=== PATIENT | female | born 1985 | race Caucasian/White ===

== ENCOUNTER 2025-03-04 12:44 | Emergency (ER) | payer BC ==
[2025-03-04 13:29] LABS: BASOPHILS ABSOLUTE AUTO 0.03 K/uL (0.00-0.20); BASOPHILS PERCENT AUTO 0.2 % (0.0-1.0); EOSINOPHILS ABSOLUTE AUTO 0.03 K/uL (0.00-0.45); EOSINOPHILS PERCENT AUTO 0.2 % (0.0-6.0); HEMATOCRIT 42.6 % (37.0-47.0); HEMOGLOBIN 14.6 g/dL (12.0-16.0); IMMATURE GRAN ABSOLUTE AUTO 0.04 K/uL (0.00-0.05); IMMATURE GRAN PERCENT AUTO 0.2 % (0.0-0.4); LYMPHOCYTES ABSOLUTE AUTO 1.82 K/uL (1.00-4.80); LYMPHOCYTES PERCENT AUTO 11.3 % (24.0-44.0); MEAN CORPUSCULAR HEMOGLOBIN 29.6 pg (28.0-32.0); MEAN CORPUSCULAR HGB CONC 34.3 g/dL (32.0-36.0); MEAN CORPUSCULAR VOLUME 86.4 fL (83.0-99.0); MEAN PLATELET VOLUME 9.5 fL (9.4-12.3); MONOCYTES ABSOLUTE AUTO 0.76 K/uL (0.00-0.80); MONOCYTES PERCENT AUTO 4.7 % (0.0-8.0); NEUTROPHILS ABSOLUTE AUTO 13.45 K/uL (1.80-7.70); NEUTROPHILS PERCENT AUTO 83.4 % (41.0-71.0); PLATELET COUNT,PLT 301 K/uL (150-400); RED BLOOD CELL COUNT 4.93 M/uL (4.10-5.30); WHITE BLOOD CELL COUNT,WBC 16.13 K/uL (3.9-11.3)
[2025-03-04] MEDS ORDERED: Naloxone 0.4 MG/ML SDV IVPUSH PRN ×2 (13:38→15:53)
[2025-03-04] MEDS: Morphine 4 MG/ML Syringe IVPUSH ONE ×2 (13:55→16:14)
[2025-03-04] MEDS: Ondansetron 4 MG/2 ML SDV IVPUSH ONE (13:55)
[2025-03-04 14:07] LABS: A/G RATIO 1.2 (0.9-1.6); ALBUMIN 4.5 g/dL (3.4-5.0); CALCIUM 9.5 mg/dL (8.5-10.1); CARBON DIOXIDE,CO2 28.3 mmol/L (21.0-32.0); CREATININE 0.8 mg/dL (0.6-1.0); EST CRCL DRUG DOSING (CG) 69.16 mL/min; POTASSIUM,K 2.9 mmol/L (3.5-5.1); PROTEIN TOTAL,TP 8.1 g/dL (6.4-8.2)
[2025-03-04] MEDS: Iopamidol 755 MG/ML 500 ML Multipack Bottle IVPUSH STA (15:00)
[2025-03-04 16:47] LABS: BILIRUBIN,URINE NEGATIVE (NEGATIVE); COLOR,URINE YELLOW; GLUCOSE,URINE NEGATIVE (NEGATIVE); KETONES,URINE 40 mg/dL (NEGATIVE); LEUKOCYTE ESTERASE,URINE NEGATIVE (NEGATIVE); NITRITE,URINE NEGATIVE (NEGATIVE); OCCULT BLOOD,URINE TRACE-INTACT (NEGATIVE); PH,URINE 6.5 (5.0-8.0); PROTEIN,URINE NEGATIVE (NEGATIVE)
[2025-03-04 16:48] LABS: APPEARANCE,URINE CLEAR
[2025-03-04 16:55] LABS: BACTERIA,URINE FEW (NEGATIVE); MUCUS,URINE LIGHT (NONE-MOD); SQUAMOUS EPITHELIAL CELLS,UR FEW; WBC,URINE 0-2 (0-5/HPF)
== END 2025-03-04 17:35 | disposition home or self-care (01) ==
LOC: MW.ED 12:44
DX: R10.2 Pelvic and perineal pain (principal); E87.6 Hypokalemia; Z90.710 Acquired absence of both cervix and uterus
CPT/HCPCS: 36415; 74177; 80053; 81001; 83735; 85025; 96374; 96375; 96376; 99284; J2270; J2405; Q9967; 99283

== ENCOUNTER 2025-04-28 13:11 | Inpatient (IN) | payer BC ==
[2025-04-28 14:28] LABS: APPEARANCE,URINE CLOUDY; GLUCOSE,URINE NEGATIVE (NEGATIVE); OCCULT BLOOD,URINE MODERATE (NEGATIVE)
[2025-04-28 14:40] LABS: EPITHELIAL CELLS,URINE FEW (NONE-FEW)
[2025-04-28] MEDS: Ketorolac 30 MG/ML SDV IVPUSH ONE (14:57)
[2025-04-28] MEDS: Ondansetron 4 MG/2 ML SDV IVPUSH ONE (14:57)
[2025-04-28] MEDS: cefTRIAXone 1 GM in Water For Injection, Sterile 10 ML IVPUSH ONE (15:27)
[2025-04-28 15:50] LABS: A/G RATIO 0.8 (0.9-1.6); ALANINE AMINOTRANSFERASE,ALT 62.0 IU/L (14-63); ASPARTATE AMNIOTRANSFERASE,AST 36.0 IU/L (15-37); BILIRUBIN TOTAL 0.6 mg/dL (0.2-1.0); BLOOD UREA NITROGEN,BUN 6.0 mg/dL (7.0-18.0); CARBON DIOXIDE,CO2 22.6 mmol/L (21.0-32.0); CHLORIDE,CL 98.0 mmol/L (98-107); CREATININE 0.8 mg/dL (0.6-1.0); EST CRCL DRUG DOSING (CG) 68.49 mL/min; GLUCOSE RANDOM 94.0 mg/dL (74-106); POTASSIUM,K 3.5 mmol/L (3.5-5.1); PROTEIN TOTAL,TP 9.1 g/dL (6.4-8.2); SODIUM,NA 134.0 mmol/L (136-145)
[2025-04-28 15:52] LABS: ESTIMATED GFR 97.0 mL/min (>60)
[2025-04-28 16:06] LABS: BASOPHILS ABSOLUTE AUTO 0.04 K/uL (0.00-0.20); BASOPHILS PERCENT AUTO 0.3 % (0.0-1.0); EOSINOPHILS ABSOLUTE AUTO 0.04 K/uL (0.00-0.45); EOSINOPHILS PERCENT AUTO 0.3 % (0.0-6.0); IMMATURE GRAN ABSOLUTE AUTO 0.04 K/uL (0.00-0.05); IMMATURE GRAN PERCENT AUTO 0.3 % (0.0-0.4); LYMPHOCYTES ABSOLUTE AUTO 1.58 K/uL (1.00-4.80); LYMPHOCYTES PERCENT AUTO 12.4 % (24.0-44.0); MEAN PLATELET VOLUME 10.7 fL (9.4-12.3); MONOCYTES ABSOLUTE AUTO 1.21 K/uL (0.00-0.80); MONOCYTES PERCENT AUTO 9.5 % (0.0-8.0); NEUTROPHILS ABSOLUTE AUTO 9.86 K/uL (1.80-7.70); NEUTROPHILS PERCENT AUTO 77.2 % (41.0-71.0); NRBC ABSOLUTE 0.00 K/uL (0.00-0.02); NRBC PERCENT 0.0 /100WBC (0.0-0.2); PLATELET COUNT,PLT 235 K/uL (150-400); RED BLOOD CELL COUNT 5.08 M/uL (4.10-5.30); WHITE BLOOD CELL COUNT,WBC 12.77 K/uL (3.9-11.3)
[2025-04-28 16:30] LABS: LACTIC ACID 0.9 mmol/L (0.4-2.0)
[2025-04-28] MEDS ORDERED: Ondansetron 4 MG Tab.DIS PO PRN (17:12)
[2025-04-28] MEDS ORDERED: Naloxone 0.4 MG/ML SDV IVPUSH PRN (17:12)
[2025-04-28] MEDS ORDERED: Sodium Chloride 0.9% 2.5 ML Syringe FLUSH PRN (17:12)
[2025-04-28] MEDS ORDERED: Sodium Chloride 0.9% 10 ML Syringe FLUSH PRN (17:12)
[2025-04-28] MEDS: Ondansetron 4 MG/2 ML SDV IVPUSH PRN (21:19)
[2025-04-29] MEDS: Ketorolac 30 MG/ML SDV IM PRN (01:05)
[2025-04-29 05:26] LABS: BASOPHILS ABSOLUTE AUTO 0.02 K/uL (0.00-0.20); BASOPHILS PERCENT AUTO 0.2 % (0.0-1.0); EOSINOPHILS ABSOLUTE AUTO 0.11 K/uL (0.00-0.45); EOSINOPHILS PERCENT AUTO 1.0 % (0.0-6.0); IMMATURE GRAN ABSOLUTE AUTO 0.03 K/uL (0.00-0.05); IMMATURE GRAN PERCENT AUTO 0.3 % (0.0-0.4); LYMPHOCYTES ABSOLUTE AUTO 1.85 K/uL (1.00-4.80); LYMPHOCYTES PERCENT AUTO 17.3 % (24.0-44.0); MEAN PLATELET VOLUME 9.1 fL (9.4-12.3); MONOCYTES ABSOLUTE AUTO 1.19 K/uL (0.00-0.80); MONOCYTES PERCENT AUTO 11.1 % (0.0-8.0); NEUTROPHILS ABSOLUTE AUTO 7.52 K/uL (1.80-7.70); NEUTROPHILS PERCENT AUTO 70.1 % (41.0-71.0); NRBC ABSOLUTE 0.00 K/uL (0.00-0.02); NRBC PERCENT 0.0 /100WBC (0.0-0.2); PLATELET COUNT,PLT 252 K/uL (150-400); RED BLOOD CELL COUNT 4.05 M/uL (4.10-5.30); WHITE BLOOD CELL COUNT,WBC 10.72 K/uL (3.9-11.3)
[2025-04-29 05:54] LABS: A/G RATIO 0.8 (0.9-1.6); ALANINE AMINOTRANSFERASE,ALT 47.0 IU/L (14-63); ASPARTATE AMNIOTRANSFERASE,AST 27.0 IU/L (15-37); BILIRUBIN TOTAL 0.4 mg/dL (0.2-1.0); BLOOD UREA NITROGEN,BUN 4.0 mg/dL (7.0-18.0); CARBON DIOXIDE,CO2 24.4 mmol/L (21.0-32.0); CHLORIDE,CL 101.0 mmol/L (98-107); CREATININE 0.6 mg/dL (0.6-1.0); EST CRCL DRUG DOSING (CG) 91.32 mL/min; GLUCOSE RANDOM 88.0 mg/dL (74-106); POTASSIUM,K 3.2 mmol/L (3.5-5.1); PROTEIN TOTAL,TP 6.9 g/dL (6.4-8.2); SODIUM,NA 137.0 mmol/L (136-145)
[2025-04-29 06:03] LABS: ESTIMATED GFR 118.0 mL/min (>60)
[2025-04-29] MEDS: Potassium Chloride 20 MEQ Tab.ER PO ONE (07:34)
[2025-04-29] MEDS: Pantoprazole 40 MG in Sodium Chloride 0.9% 10 ML IVPUSH SCH (10:49)
[2025-04-29] MEDS: cefTRIAXone 1 GM in Water For Injection, Sterile 10 ML IVPUSH SCH (15:04)
[2025-04-30 05:39] LABS: BASOPHILS ABSOLUTE AUTO 0.02 K/uL (0.00-0.20); BASOPHILS PERCENT AUTO 0.2 % (0.0-1.0); EOSINOPHILS ABSOLUTE AUTO 0.10 K/uL (0.00-0.45); EOSINOPHILS PERCENT AUTO 1.1 % (0.0-6.0); IMMATURE GRAN ABSOLUTE AUTO 0.01 K/uL (0.00-0.05); IMMATURE GRAN PERCENT AUTO 0.1 % (0.0-0.4); LYMPHOCYTES ABSOLUTE AUTO 1.56 K/uL (1.00-4.80); LYMPHOCYTES PERCENT AUTO 17.8 % (24.0-44.0); MEAN PLATELET VOLUME 9.0 fL (9.4-12.3); MONOCYTES ABSOLUTE AUTO 1.05 K/uL (0.00-0.80); MONOCYTES PERCENT AUTO 12.0 % (0.0-8.0); NEUTROPHILS ABSOLUTE AUTO 6.02 K/uL (1.80-7.70); NEUTROPHILS PERCENT AUTO 68.8 % (41.0-71.0); NRBC ABSOLUTE 0.00 K/uL (0.00-0.02); NRBC PERCENT 0.0 /100WBC (0.0-0.2); PLATELET COUNT,PLT 263 K/uL (150-400); RED BLOOD CELL COUNT 3.86 M/uL (4.10-5.30); WHITE BLOOD CELL COUNT,WBC 8.76 K/uL (3.9-11.3)
[2025-04-30 06:01] LABS: A/G RATIO 0.8 (0.9-1.6); ALANINE AMINOTRANSFERASE,ALT 88.0 IU/L (14-63); ASPARTATE AMNIOTRANSFERASE,AST 78.0 IU/L (15-37); BILIRUBIN TOTAL 0.3 mg/dL (0.2-1.0); BLOOD UREA NITROGEN,BUN 5.0 mg/dL (7.0-18.0); CARBON DIOXIDE,CO2 22.5 mmol/L (21.0-32.0); CHLORIDE,CL 106.0 mmol/L (98-107); CREATININE 0.6 mg/dL (0.6-1.0); EST CRCL DRUG DOSING (CG) 91.32 mL/min; GLUCOSE RANDOM 93.0 mg/dL (74-106); POTASSIUM,K 3.2 mmol/L (3.5-5.1); PROTEIN TOTAL,TP 6.3 g/dL (6.4-8.2); SODIUM,NA 141.0 mmol/L (136-145)
[2025-04-30 06:06] LABS: ESTIMATED GFR 118.0 mL/min (>60)
== END 2025-04-30 15:40 | disposition home or self-care (01) | DRG 463 ==
LOC: MW.ED 13:11 → MW.MS 16:58 → MW.ED 17:14
PROVIDERS: ADMIT Internal Medicine; ATTEND Internal Medicine
DX: N10 Acute pyelonephritis (principal); M79.601 Pain in right arm; N20.0 Calculus of kidney; M54.9 Dorsalgia, unspecified; N39.0 Urinary tract infection, site not specified; G89.29 Other chronic pain; F90.9 Attention-deficit hyperactivity disorder, unspecified type; E86.0 Dehydration; F41.9 Anxiety disorder, unspecified; F43.12 Post-traumatic stress disorder, chronic; Z90.710 Acquired absence of both cervix and uterus; Z79.899 Other long term (current) drug therapy
CPT/HCPCS: 36415; 72125; 72125-26; 74176; 74176-26; 80053; 81001; 81025; 83605; 83735; 85025; 87086; 87088; 87186; 96361; 96374; 96375; 97165-GO; 99284; 99285-25; A9270-GY; J0696; J1650; J1885; J2270; J2405; J2470; J3480; J7030